=== PATIENT | female | born 2000 | race Two or more races ===

== ENCOUNTER 2025-06-02 08:19 | Emergency (ER) | payer OTHER ==
[~2025-06-02] VITALS: Ht 160 cm; Wt 59.0 kg
[2025-06-02 08:42] VITALS: BP 105/72; O2SAT 100
[2025-06-02] MEDS ORDERED: KETOROLAC TROMETHAMINE 30 MG VIAL IM STA (09:09)
[2025-06-02] MEDS ORDERED: KETOROLAC TROMETHAMINE 30 MG VIAL ONE (09:35)
[2025-06-02 10:08] LABS: BASO % 0.8 % (0.1-1.2); EOS # 0.13 (0.04-0.54); EOS % 2.0 % (0.7-7.0); LYMPH # 1.46 (1.18-3.74); LYMPH % 22.8 % (19.3-53.1); MEAN PLATELET VOLUME 11.60 fl (9.4-12.4); MONO # 0.46 (0.24-0.82); MONO % 7.2 % (4.7-12.5); NEUT # 4.29 (1.56-6.13); NEUT % 66.9 % (34.0-71.1); RED CELL DISTRIBUTION WIDTH 11.8 % (11.6-14.4)
[2025-06-02 10:31] LABS: BUN CREA RATIO 15.0 (7.0-25.0); CREATININE SERUM 0.79 mg/dL (0.55-1.02); GFR 87.3; GLUCOSE FASTING 91.0 mg/dL (65-100); OSMOLALITY SERUM 281.0 MOSM/KG (275-295)
== END 2025-06-02 12:10 | disposition home or self-care (01) ==
LOC: ER 08:19
PROVIDERS: General Practice
DX: M94.0 Chondrocostal junction syndrome [Tietze] (principal)